=== PATIENT | female | born 1960 | race Caucasian/White ===

== ENCOUNTER 2017-03-23 12:40 | Outpatient (CLI) | payer OTHER | END 2017-03-23 12:41 | disposition home or self-care (01) | LOC: BICMAMMO 12:40 | PROVIDERS: ATTEND Family Medicine | DX: Z13.820 Encounter for screening for osteoporosis (principal) | CPT/HCPCS: 77080 ==

== ENCOUNTER 2017-04-10 08:05 | Outpatient (CLI) | payer OTHER | END 2017-04-10 08:06 | disposition home or self-care (01) | LOC: BICMAMMO 08:05 | PROVIDERS: ATTEND Family Medicine | DX: Z12.31 Encounter for screening mammogram for malignant neoplasm of breast (principal); R92.1 Mammographic calcification found on diagnostic imaging of breast; Z80.3 Family history of malignant neoplasm of breast | CPT/HCPCS: 77067 ==

== ENCOUNTER 2018-02-02 09:52 | Outpatient (CLI) | payer OTHER ==
--- NOTE | 2018-02-02 12:09 | RAD ---
THREE VIEWS PARANASAL SINUSES: Date: 02-02-18 History: COPD with acute respiratory infection. FINDINGS: Visualized paranasal sinuses appear clear. No definite mucosal thickening is seen and there is no celestina dence of an air fluid level. Osseous structures have a grossly normal appearance. IMPRESSION: No mucosal thickening or air fluid level is seen in the visualized paranasal sinuses. POS: [facility]
--- NOTE | 2018-02-02 12:19 | RAD ---
PA AND LATERAL CHEST: HISTORY: COPD. Acute respiratory infection. FINDINGS: The heart size is normal. The aorta is tortuous. The lungs are well expanded without focal areas of consolidation, pneumothoraces, or pleural effusion. No acute osseous abnormalities are seen. IMPRESSION: No radiographic evidence of acute cardiopulmonary process. POS: [facility]
== END 2018-02-02 09:53 | disposition home or self-care (01) ==
LOC: BICRAD 09:52
PROVIDERS: ATTEND Family Medicine
DX: J44.0 Chronic obstructive pulmonary disease with (acute) lower respiratory infection (principal)
CPT/HCPCS: 70220; 71046

== ENCOUNTER 2018-09-01 15:14 | Outpatient (CLI) | payer OTHER ==
--- NOTE | 2018-09-01 17:07 | RAD ---
RADIOGRAPH CHEST 2 VIEWS: 09/01/18 HISTORY: 57-year-old female with dyspnea. FINDINGS: There is hyperinflation of the lungs, consistent with COPD. There is no evidence of air space densit y, pneumothorax, or pulmonary edema. There is no cardiomegaly or pleural effusion. IMPRESSION: 1) No acute cardiopulmonary findings. 2) Mild emphysema. jn [] POS: [facility]
== END 2018-09-01 15:15 | disposition home or self-care (01) ==
LOC: RAD 15:14
PROVIDERS: ATTEND Internal Medicine Pulmonary Disease
DX: R06.00 Dyspnea, unspecified (principal); J43.9 Emphysema, unspecified
CPT/HCPCS: 71046

== ENCOUNTER 2018-12-15 12:31 | Emergency (ER) | payer OTHER ==
[2018-12-15] MEDS ORDERED: Ondansetron PF 4 MG/2 ML Vial ONE (12:55)
[2018-12-15] MEDS ORDERED: Morphine 4 MG/ML VIAL ONE (13:07)
[2018-12-15 13:26] LABS: Hemoglobin 14.9 g/dL (12.0-16.0); Mean Corpuscular HGB CONC 33.8 g/dL (32.0-36.0); Mean Corpuscular Hemoglobin 30.9 pg (27.0-31.0); Mean Corpuscular Volume 91.5 fL (78.0-98.0); Mean Platelet Volume 7.3 fL (7.4-10.4); Platelet Count 344 thou/uL (130-400); Red Blood Cell (RBC) Count 4.83 mill/uL (4.20-5.40); White Blood Cell (WBC) Count 10.4 thou/uL (4.8-10.8)
[2018-12-15 13:45] LABS: ALT (SGPT) 24 U/L (8-55); AST (SGOT) 25 U/L (5-34); Albumin 4.5 g/dL (3.5-5.0); Alkaline Phosphatase 121 U/L (40-110); Anion Gap 16 mmol/L (10-20); BUN (Urea Nitrogen) 14 mg/dL (9.8-20.1); Bilirubin, Total 0.4 mg/dL (0.2-1.2); CK (CPK) 172 U/L (29-168); Calc. Creatinine Clearance 0 mL/min (70-130); Calcium 9.7 mg/dL (7.8-10.44); Carbon Dioxide 21 mmol/L (22-29); Chloride 101 mmol/L (98-107); Estimated GFR-MDRD 57; Globulin 3.8 g/dL (2.4-3.5); Glucose 92 mg/dL (70-105); Lipase 19 U/L (8-78); Potassium 4.1 mmol/L (3.5-5.1); Protein, Total 8.3 g/dL (6.0-8.3); Sodium 134 mmol/L (136-145)
[2018-12-15 13:57] LABS: Band 2 % (5-11); Eosinophils 2 % (0-10); Lymphocytes 63 % (21-51); MDiff Complete? YES; Monocytes 6 % (0-10); Neutrophil 27 % (42-75); Platelet Morphology Comment Appears Adequate
--- NOTE | 2018-12-18 14:43 | EKG ---
Test Reason : Blood Pressure : / mmHG Vent. Rate : 086 BPM Atrial Rate : 086 BPM P-R Int : 152 ms QRS Dur : 092 ms QT Int : 374 ms P-R-T Axes : 070 060 068 degrees QTc Int : 447 ms Normal sinus rhythm Normal ECG Confirmed by JULIA ARREGUIN DO ([id number]), copy editor WINNIE ANTONIO ([id number]) on 12/18/2018 2:42:16 PM Referred By: Confirmed By:JULIA ARREGUIN DO
== END 2018-12-15 15:07 | disposition home or self-care (01) ==
LOC: ERS 12:31
DX: R19.7 Diarrhea, unspecified (principal); R11.2 Nausea with vomiting, unspecified; E11.9 Type 2 diabetes mellitus without complications; F41.9 Anxiety disorder, unspecified; F31.9 Bipolar disorder, unspecified; F43.10 Post-traumatic stress disorder, unspecified; Z79.899 Other long term (current) drug therapy; F17.210 Nicotine dependence, cigarettes, uncomplicated
CPT/HCPCS: 80053; 82550; 83690; 84484; 85025; 93005; 96361; 96374; 96375; J2270; J2405

== ENCOUNTER 2019-07-08 07:57 | Outpatient (CLI) | payer OTHER ==
--- NOTE | 2019-07-08 09:14 | ULT ---
Hepatic sonogram with duplex evaluation HISTORY: Hepatitis. Abdominal pain. Shadowing stone is present within the dependent portion of the gallbladder lumen. No gallbladder wall thickening or pericholecystic fluid. Common duct is 0.4 cm. Liver is diffusely echogenic without focal mass or intrahepatic biliary dilatation. Spleen is 10.0 cm length. Normal appearance. No free fluid. Good color and spectral Doppler flow within the hepatic and splenic arteries. Portal venous flow is t owards the liver. Hepatic venous flow is towards the IVC. IMPRESSION : Cholelithiasis. No evidence of acute biliary obstruction. Hepato-steatosis. No sonographic findings of portal venous hypertension.
== END 2019-07-08 07:58 | disposition home or self-care (01) ==
LOC: BICULT 07:57
PROVIDERS: ATTEND Physician Assistant Medical
DX: B18.2 Chronic viral hepatitis C (principal); K80.20 Calculus of gallbladder without cholecystitis without obstruction; K76.0 Fatty (change of) liver, not elsewhere classified
CPT/HCPCS: 76705

== ENCOUNTER 2019-09-12 10:25 | Inpatient (IN) | payer OTHER ==
[2019-09-12 11:34] LABS: #Lymphocytes 2.3 thou/uL (1.20-3.40); #Neutrophils 9.6 thou/uL (1.40-6.50); %Basophils 0.3 % (0.0-1.0); %Eosinophils 0.1 % (0.0-10.0); %Lymphocytes 17.9 % (21.0-51.0); %Monocytes 7.7 % (0.0-10.0); Hemoglobin 14.1 g/dL (12.0-16.0); Mean Corpuscular HGB CONC 32.5 g/dL (32.0-36.0); Mean Corpuscular Hemoglobin 29.6 pg (27.0-31.0); Mean Corpuscular Volume 91.1 fL (78.0-98.0); Mean Platelet Volume 7.7 fL (7.4-10.4); Platelet Count 299 thou/uL (130-400); RBC Distribution Width 12.1 % (11.5-14.5); Red Blood Cell (RBC) Count 4.77 mill/uL (4.20-5.40)
[2019-09-12] MEDS ORDERED: Nitroglycerin 2% Ointment 1 INCH/1 GM Packet ONE (11:40)
[2019-09-12 12:06] LABS: ALT (SGPT) 46 U/L (8-55); AST (SGOT) 91 U/L (5-34); Albumin 4.1 g/dL (3.5-5.0); Alkaline Phosphatase 106 U/L (40-110); Anion Gap 15 mmol/L (10-20); BUN (Urea Nitrogen) 19 mg/dL (9.8-20.1); Bilirubin, Total 0.6 mg/dL (0.2-1.2); CK (CPK) 2746 U/L (29-168); Calc. Creatinine Clearance 0 mL/min (70-130); Calcium 8.5 mg/dL (7.8-10.44); Carbon Dioxide 18 mmol/L (22-29); Chloride 111 mmol/L (98-107); Estimated GFR-MDRD 74; Globulin 3.4 g/dL (2.4-3.5); Glucose 140 mg/dL (70-105); Potassium 3.7 mmol/L (3.5-5.1); Protein, Total 7.5 g/dL (6.0-8.3); Sodium 140 mmol/L (136-145)
[2019-09-12 13:30] VITALS: BMI 23.9
[2019-09-12] MEDS: cloNIDine 0.1 MG TAB PO PRN ×2 (13:32→21:31)
[2019-09-12] MEDS: Sodium Bicarbonate 100 MEQ in Sodium Chloride 0.45% 1,000 ML IV SCH ×2 (13:35→21:01)
[2019-09-12 13:41] LABS: Lactic Acid 0.8 mmol/L (0.5-2.2)
[2019-09-12 14:06] LABS: Magnesium 1.7 mg/dL (1.6-2.6)
[2019-09-12] MEDS ORDERED: Labetalol HCl 100 MG/20 ML VIAL SLOW IVP PRN (14:14)
[2019-09-12] MEDS ORDERED: Ondansetron PF 4 MG/2 ML Vial IVP PRN (14:15)
[2019-09-12] MEDS ORDERED: Dextrose 50% Abboject 50 ML SYRINGE SLOW IVP PRN (14:37)
[2019-09-12] MEDS ORDERED: HumaLOG 300 UNITS/3 ML VIAL SC PRN (14:37)
[2019-09-12] MEDS ORDERED: Dextrose 5% in Water 1,000 ML IV PRN (14:37)
[2019-09-12] MEDS ORDERED: Nitroglycerin 2% Ointment 1 INCH/1 GM Packet TOP SCH (14:45)
[2019-09-12] MEDS ORDERED: Magnesium Sulfate 4 GM in Sodium Chloride 0.9% 250 ML 250 ML IVPB SCH (14:45)
--- NOTE | 2019-09-12 15:23 | HP ---
PRIMARY CARE PHYSICIAN: In [place]. HISTORY OF PRESENT ILLNESS: Ms. Waite is a 58-year-old female, who presented to the emergency room at [place] at 6:00 a.m. today. She reports that she has been nauseated and vomiting for the last 24 hours. She reports that she went on a fishing trip near [place], started vomiting, was out in the sun all day and not able to keep any fluids down. She reports that she has had worsening cramping overnight and came in to the emergency room in [place] with epigastric pain, nausea, vomiting, dehydration. She reports that she has had similar symptoms ongoing since May of this year, had a colonoscopy at some point within the last month, but says they were unable to find anything. She did have an ultrasound in our system of the right upper quadrant, which showed cholelithiasis with no evidence of acute biliary obstruction. There is pathology report from a sample taken by Dr. Cortes on the of this month. Vital signs; she is hypertensive, systolic in the 190s to 200s. Lab work; white blood cell count 16.2, hemoglobin 15.8, hematocrit 50.3, and platelet count 443. Carbon dioxide 16, gap is 23, BUN is 28, glucose 189. AST is 80, ALT 48, alkaline phosphatase 120. CK is 2054, CK-MB is 16. Troponin is 0.032. Albumin 5.1. UA; small amount of bilirubin, small amount of blood, ketones, no bacteria is noted. Toxicology positive for cannabinoids. Plasma alcohol less than 10. She was sent over to [facility] Emergency Room for further management and admission. Here, she was still nauseated with profound hypertension and tachycardia. Prior to her arrival, she had received Phenergan and Valium and Zofran were given prior to arrival. EKG showed ST-segment depression in V4 and V5 only. The patient will be admitted to the telemetry unit for further management. REVIEW OF SYSTEMS: The patient reports she has had some body aches, body muscle cramping, nausea, vomiting, epigastric abdominal pain, p.o. intolerance. She denied any fevers, chills, or any upper respiratory symptoms. All systems reviewed and negative unless mentioned in the HPI or above. PAST MEDICAL HISTORY: Pertinent for type 2 diabetes, GERD, hypertension, chronic obstructive pulmonary disease, RLS. SURGICAL HISTORY: Rectal prolapse, bladder prolapse, multiple teeth extractions, left knee surgery. She said she had a small blood clot in her head when she was a child and has had her right ovary removed. PSYCH HISTORY: Bipolar depression, PTSD, anxiety. SOCIAL HISTORY: Denies any alcohol use. Denies drug use. Uses tobacco. Smoke cigarettes. ALLERGIES: NO KNOWN DRUG ALLERGIES. CURRENT MEDICATIONS: Per the ER systems, which still has to be reconciled. 1. Lisinopril/hydrochlorothiazide. 2. Prilosec 40 mg once a day. 3. Dulera two inhalations daily. 4. Flagyl 500 mg p.o. q.6 hours. 5. Clonidine 0.2 mg p.r.n. as needed. PHYSICAL EXAMINATION: VITAL SIGNS: Blood pressure 189/105, pulse is 110, respiratory rate is 20, pO2 sats are 96% on room air. CONSTITUTIONAL: The patient appears nauseated and in mild pain distress. She does not look like she feels well. She is alert though and oriented to person, place and time. HEENT: Head is atraumatic and normocephalic. Eyes, pupils are equally round and reactive to light. There is no photophobia. Conjunctiva is normal. ENT, mouth exam is normal. Mucous membranes are moist. NECK: Normal range of motion. No JVD is noted. RESPIRATORY: Breath sounds are clear. Breath sounds equal bilaterally. Chest expansion is equal. CARDIOVASCULAR: Regular heart rate and rhythm. Heart sounds are normal. ABDOMEN: Mild tenderness, epigastric on palpation. Bowel sounds are heard. BACK: Normal range of motion. No tenderness. EXTREMITIES: Upper extremity; normal range of motion. Motor strength is normal. Radial pulses are normal. Lower extremity; normal inspection. Pedal pulses are normal. NEURO: The patient is oriented to person, place, and time. SKIN: Warm, dry, normal in color. PSYCH: Normal affect. ASSESSMENT AND PLAN: 1. Rhabdomyolysis, dehydration, start fluids. With hypertension, we will start half-normal saline, sodium bicarb we will recheck CK in the morning. 2. Nausea, vomiting. Add some Zofran IV for any nausea. Keep her n.p.o. today. Start clear liquids in the morning and see if she tolerates. Dr. Cortes evidently did colonoscopy within the last month. If symptoms persist, we may ask him to consult. 3. Hypertensive urgency with elevated troponin in the indeterminate range. We will do serial troponins. Start clonidine. The patient has some nitroglycerin paste on her chest. 4. Diabetes type 2. Accu-Cheks before meals and at bedtime. Sliding scale as needed for coverage. 5. Metabolic acidosis see #1. 6. Deep venous thrombosis and gastrointestinal prophylaxis started. 7. Recheck lab work in the morning. We have added phosphorus and magnesium and TSH level. 8. Case discussed with Dr. Whitney, who agrees with plan. Job ID: [id number]
[2019-09-12] MEDS ORDERED: Hyoscyamine Sulfate SL 0.125 mg Tablet SL PRN (18:10)
[2019-09-12] MEDS: Ipratropium/Albuterol Sulfate 4 GM AER IH SCH (19:08)
[2019-09-12] MEDS: Mometasone 200 MCG/Formoterol 5 MCG 120 PUFF INHALER INH SCH (19:09)
[2019-09-12] MEDS: Lisinopril/Hydrochlorothiazide 20 mg/12.5 mg Tablet PO SCH (20:38)
[2019-09-12] MEDS: Nitroglycerin 2% Ointment 1 INCH/1 GM Packet TOP SCH (20:38)
[2019-09-12] MEDS ORDERED: Calcium Carbonate 500 MG ChewTAB PO PRN (23:27)
[2019-09-12] MEDS ORDERED: Senokot S 8.6-50 MG TAB PO PRN (23:27)
[2019-09-12] MEDS ORDERED: ALPRAZolam 0.5 MG TAB PO SCH (23:45)
[2019-09-12] MEDS ORDERED: ALPRAZolam 0.25 MG TAB PO SCH (23:45)
[2019-09-12] MEDS: Acetaminophen 325 MG TAB PO PRN (23:48)
[2019-09-13 04:25] LABS: #Monocytes 0.6 thou/uL (0.11-0.59); #Neutrophils 6.9 thou/uL (1.40-6.50); %Basophils 0.4 % (0.0-1.0); %Eosinophils 0.2 % (0.0-10.0); %Lymphocytes 28.6 % (21.0-51.0); %Monocytes 5.9 % (0.0-10.0); %Neutrophils 64.9 % (42.0-75.0); Hemoglobin 13.8 g/dL (12.0-16.0); Mean Corpuscular HGB CONC 33.3 g/dL (32.0-36.0); Mean Corpuscular Hemoglobin 30.3 pg (27.0-31.0); Mean Corpuscular Volume 90.7 fL (78.0-98.0); Platelet Count 262 thou/uL (130-400); RBC Distribution Width 11.9 % (11.5-14.5); Red Blood Cell (RBC) Count 4.57 mill/uL (4.20-5.40); White Blood Cell (WBC) Count 10.6 thou/uL (4.8-10.8)
[2019-09-13 05:20] LABS: Albumin 3.7 g/dL (3.5-5.0); BUN (Urea Nitrogen) 10 mg/dL (9.8-20.1); BUN/Creatinine Ratio 15.63; Calc. Creatinine Clearance 91 mL/min (70-130); Calcium 8.7 mg/dL (7.8-10.44); Carbon Dioxide 18 mmol/L (22-29); Chloride 100 mmol/L (98-107); Estimated GFR-MDRD Greater than 90; Glucose 111 mg/dL (70-105); Phosphorus 2.5 mg/dL (2.3-4.7); Potassium 3.4 mmol/L (3.5-5.1); Sodium 132 mmol/L (136-145)
[2019-09-13] MEDS: cloNIDine 0.1 MG TAB PO PRN (05:20)
[2019-09-13] MEDS: Acetaminophen 325 MG TAB PO PRN ×3 (05:21→20:45)
[2019-09-13] MEDS: Nitroglycerin 2% Ointment 1 INCH/1 GM Packet TOP SCH (05:21)
[2019-09-13 05:33] LABS: CK (CPK) 4390 U/L (29-168)
[2019-09-13 05:42] LABS: Anion Gap 17 mmol/L (10-20)
[2019-09-13] MEDS: Mometasone 200 MCG/Formoterol 5 MCG 120 PUFF INHALER INH SCH ×2 (07:23→20:35)
[2019-09-13] MEDS: Ipratropium/Albuterol Sulfate 4 GM AER IH SCH ×2 (07:24→12:39)
[2019-09-13] MEDS: Sodium Bicarbonate 100 MEQ in Sodium Chloride 0.45% 1,000 ML IV SCH ×2 (08:02→18:12)
[2019-09-13] MEDS: Lisinopril/Hydrochlorothiazide 20 mg/12.5 mg Tablet PO SCH ×2 (09:10→20:47)
[2019-09-13] MEDS: Enoxaparin Sodium 40 MG/0.4 ML SYRINGE SC SCH (09:10)
[2019-09-13] MEDS: cloNIDine 0.2 MG TAB PO SCH ×3 (09:10→20:45)
--- NOTE | 2019-09-13 10:25 | PDOC.HOSPP ---
- Subjective Encounter Date: 09/13/19 Encounter Time: 12:00 Subjective: Patient seen and examined for rhabdomyolysis. Nausea improving. No new complaints. No overnight events - Objective Vital Signs & Weight: Vital Signs (12 hours) Temp Pulse Resp BP BP Pulse Ox 09/13/19 07:56 97.9 F 65 16 176/95 H 95 09/13/19 07:23 96 09/13/19 07:19 59 L 16 96 09/13/19 05:20 183/97 H 09/13/19 04:00 98.1 F 85 18 183/96 H 95 09/13/19 01:01 75 187/97 H 09/13/19 00:57 187/97 H 09/13/19 00:00 98.8 F 83 18 183/101 H 95 09/12/19 23:20 189/107 H Weight Weight 130 lb 11.2 oz I&O: 09/12/19 09/13/19 09/14/19 06:59 06:59 06:59 Intake Total 2910 Output Total 2150 Balance 760 Result Diagrams: 09/14/19 04:17 09/14/19 04:17 Additional Labs: Accuchecks 09/13/19 09/12/19 09/12/19 05:24 20:38 17:59 POC Glucose 122 H 124 H 134 H Laboratory Tests 09/13/19 04:06 Creatine Kinase 4390 H Laboratory Tests 09/12/19 07:35 U Cannabinoids Screen Detected H EKG Reviewed by me: Yes (Tele SR) Hospitalist ROS - Review of Systems Respiratory: denies: cough, dry, shortness of breath, hemoptysis, SOB with excertion, pleuritic pain, sputum, wheezing, other Cardiovascular: denies: chest pain, palpitations, orthopnea, paroxysmal noc. dyspnea, edema, light headedness, other - Medication Medications: Active Medications Generic Name Dose Route Start Last Admin Trade Name Freq PRN Reason Stop Dose Admin Acetaminophen 650 mg 09/12/19 23:27 09/13/19 05:21 Tylenol PO 650 mg Q4H PRN Administration Headache/Fever/Mild Pain (1-3) Albuterol/Ipratropium 1 gm 09/12/19 19:00 09/13/19 07:24 Combivent Respimat 20-100 Mcg IH Not Given QID-RT RISHI Albuterol/Ipratropium 3 ml 09/13/19 06:30 09/13/19 07:19 Duoneb NEB 3 ml BID-RT RISHI Administration Clonidine 0.1 mg 09/12/19 11:36 09/13/19 05:20 Catapres PO 0.1 mg Q4H PRN Administration SBP Greater Than 170 Clonidine 0.2 mg 09/13/19 09:00 09/13/19 09:10 Catapres PO 0.2 mg TID RISHI Administration Enoxaparin Sodium 40 mg 09/13/19 09:00 09/13/19 09:10 Lovenox SC 40 mg 0900 RISHI Administration Lisinopril/HCTZ 1 tab 09/12/19 21:00 09/13/19 09:10 Prinizide 20-12.5 PO 1 tab BID RISHI Administration Sodium Bicarbonate 100 meq/ 1,100 mls @ 125 mls/hr 09/12/19 11:45 09/13/19 08 :02 Sodium Chloride IV 1,100 mls .[id number] RISHI Administration Labetalol HCl 10 mg 09/12/19 14:14 09/13/19 01:01 Normodyne SLOW IVP 10 mg Q4H PRN Administration Systolic BP > 160 Mometasone Furoate/Formoterol Fumar 2 puff 09/12/19 21:00 09/13/19 07:23 Dulera 200 Mcg/5 Mcg Inhaler INH 2 puff BID RISHI Administration Nitroglycerin 0.5 inch 09/12/19 22:00 09/13/19 05:21 Nitro-Bid 2% Ointment TOP 0.5 inch Q8HR RISHI Administration Ondansetron HCl 4 mg 09/12/19 14:15 09/12/19 20:41 Zofran IVP 4 mg Q6H PRN Administration Nausea/Vomiting Pantoprazole Sodium 40 mg 09/13/19 09:00 09/13/19 09:10 Protonix PO 40 mg QAM RISHI Administration Sodium Chloride 10 ml 09/12/19 21:00 09/13/19 09:13 Flush - Normal Saline IVF Not Given Q12HR RISHI - Exam General Appearance: NAD Neck: supple, no JVD Heart: RRR, no gallops Respiratory: no wheezes, no ronchi Gastrointestinal: non-tender, non-distended, normal bowel sounds Extremities: no cyanosis Neurological: no new deficit Hosp A/P - Plan DVT proph w/SCDs N/V Rhabdomyolysis Cannabis abuse Hypokalemia/Hyponatremia Metabolic acidosis DM2 RLS COPD HTN GERD PLAN: Restart Clonidine DC NTG patch due to headache Cont IVF with bicarb Replace Potassium Cont other meds as above
[2019-09-13] MEDS ORDERED: ALPRAZolam 0.25 MG TAB PO PRN (10:26)
[2019-09-13] MEDS: Potassium Chloride 20 MEQ TAB PO SCH ×2 (12:42→15:45)
[2019-09-13] MEDS ORDERED: Ibuprofen 200 MG TAB PO PRN (14:04)
[2019-09-14] MEDS: Sodium Bicarbonate 100 MEQ in Sodium Chloride 0.45% 1,000 ML IV SCH ×2 (02:26→11:42)
[2019-09-14 05:32] LABS: Albumin 3.4 g/dL (3.5-5.0); Anion Gap 11 mmol/L (10-20); BUN (Urea Nitrogen) 14 mg/dL (9.8-20.1); BUN/Creatinine Ratio 17.95; Calc. Creatinine Clearance 73 mL/min (70-130); Calcium 8.9 mg/dL (7.8-10.44); Carbon Dioxide 28 mmol/L (22-29); Chloride 102 mmol/L (98-107); Estimated GFR-MDRD 76; Glucose 116 mg/dL (70-105); Phosphorus 1.9 mg/dL (2.3-4.7); Potassium 3.3 mmol/L (3.5-5.1); Sodium 138 mmol/L (136-145)
[2019-09-14 05:33] LABS: Hemoglobin 13.3 g/dL (12.0-16.0); Lymphocytes 47 % (21-51); MDiff Complete? YES; Mean Corpuscular HGB CONC 33.7 g/dL (32.0-36.0); Mean Corpuscular Hemoglobin 30.6 pg (27.0-31.0); Mean Corpuscular Volume 90.6 fL (78.0-98.0); Mean Platelet Volume 7.9 fL (7.4-10.4); Monocytes 4 % (0-10); Neutrophil 49 % (42-75); Platelet Count 227 thou/uL (130-400); Platelet Morphology Comment Appears Adequate; RBC Distribution Width 11.6 % (11.5-14.5); RBC Morphology Normal; Red Blood Cell (RBC) Count 4.35 mill/uL (4.20-5.40); White Blood Cell (WBC) Count 5.1 thou/uL (4.8-10.8)
[2019-09-14] MEDS ORDERED: PHOS-NAK 1 PKT PACK PO SCH ×2 (06:15→17:00)
[2019-09-14] MEDS: Mometasone 200 MCG/Formoterol 5 MCG 120 PUFF INHALER INH SCH ×2 (07:24→18:47)
[2019-09-14] MEDS ORDERED: K-Phos Neutral 250 MG TAB PO SCH (08:15)
[2019-09-14] MEDS: Enoxaparin Sodium 40 MG/0.4 ML SYRINGE SC SCH (08:18)
[2019-09-14] MEDS: Lisinopril/Hydrochlorothiazide 20 mg/12.5 mg Tablet PO SCH (08:19)
[2019-09-14] MEDS: cloNIDine 0.2 MG TAB PO SCH ×4 (08:20→20:47)
[2019-09-14] MEDS: Potassium Chloride 20 MEQ TAB PO SCH (08:34)
--- NOTE | 2019-09-14 12:55 | PDOC.EVN ---
Event Note - Event Note Event Note: Patient seen and examined for nausea with vomiting. Vitals reviewed. I agree with note provided by CIRCLE SAW OPERATOR. N/V Rhabdomyolysis Cannabis abuse Hypokalemia/Hyponatremia Metabolic acidosis DM2 RLS COPD HTN GERD
[2019-09-14] MEDS: K-Phos Neutral 250 MG TAB PO SCH ×2 (13:23→17:34)
[2019-09-14] MEDS ORDERED: NIFEdipine XL 60 MG TAB PO SCH (14:45)
[2019-09-14] MEDS: Acetaminophen 325 MG TAB PO PRN ×2 (15:33→20:47)
[2019-09-14] MEDS: Lactated Ringer's 1,000 ML IV SCH ×3 (16:41→20:47)
[2019-09-14] MEDS ORDERED: Potassium Chloride 20 MEQ TAB PO SCH (17:00)
--- NOTE | 2019-09-14 18:03 | CON ---
DATE OF CONSULTATION: 09/14/2019 SERVICE: Nephrology. REASON FOR CONSULTATION: Rhabdomyolysis with increasing CPK level. REQUESTING PHYSICIAN: Carlton Whitney MD HISTORY OF PRESENT ILLNESS: A 58-year-old female with known history of type 2 diabetes, hypertension, and COPD, who was admitted on September 11 due to intractable nausea and vomiting, dehydration, and rhabdomyolysis. The patient was started on IV fluid therapy and liberal oral intake. Generalized body cramps noticed on presentation have subsided and the patient is ambulating. Nausea and vomiting have also subsided. The patient is keeping food down. She, however, has increasing CPK. CPK has gone up from 2000 on presentation to 4800 currently, necessitating Nephrology consult. There is no history of fever, abdominal pain, leg swelling, dysuria, hematuria, headache, dizziness, shortness of breath, focal weakness, hematemesis, hematochezia. PAST MEDICAL HISTORY: 1. Type 2 diabetes mellitus. 2. Gastroesophageal reflux disease. 3. Hypertension. 4. COPD. 5. RLS. 6. Cholelithiasis. PAST SURGICAL HISTORY: 1. Rectal prolapse repair. 2. Bladder prolapse repair. 3. Left knee surgery. 4. Colonoscopy. 5. Upper GI series. FAMILY HISTORY: Reviewed, but noncontributory. No history of premature cardiac disease in relatives. SOCIAL HISTORY: The patient is everyday smoker, smokes about 2 packs of cigarettes daily. Last cigarette use was about four days ago. She denied alcohol use or recreational drug use. ALLERGIES: NO KNOWN DRUG ALLERGIES REPORTED. PRIOR TO HOSPITAL MEDICATIONS: 1. Lisinopril/hydrochlorothiazide 20/12.5 one tablet b.i.d. 2. Hyoscyamine sulfate 0.125 mg sublingual q.4h p.r.n. 3. Metronidazole 500 mg q.8 hours. 4. Clonidine 0.2 mg p.o. b.i.d. 5. DuoNeb nebulization b.i.d. 6. Combivent 1 puff inhalation q.i.d. p.r.n. 7. Lisinopril 20 mg p.o. b.i.d. 8. Dulera 2 puffs inhalation b.i.d. 9. Omeprazole 40 mg p.o. daily. 10. Zofran ODT 4 mg p.o. b.i.d. p.r.n. for nausea and vomiting. CURRENT HOSPITAL MEDICATIONS: 1. Half NS plus sodium bicarbonate running at 125 mL/h. 2. Clonidine 0.2 mg p.o. t.i.d. 3. Lovenox 40 mg subcutaneously daily. 4. DuoNeb nebulization b.i.d. 5. Potassium phosphate Neutral 500 mg p.o. t.i.d. with meals. 6. Lisinopril/hydrochlorothiazide 20/12.5 mg p.o. b.i.d. 7. Dulera 2 puffs inhalation b.i.d. 8. Protonix 40 mg p.o. daily. 9. Phos-Nak two packets p.o. b.i.d. 10. Potassium chloride 20 mEq p.o. b.i.d. 11. Acetaminophen 650 mg q.4h p.r.n. 12. Xanax 0.25 mg q.i.d. p.r.n. REVIEW OF SYSTEMS: 12-point review of system performed was negative other than pertinent positives and negatives included in the History of Present Illness. PHYSICAL EXAMINATION: VITAL SIGNS: Temperature 97.6, pulse 78, respiratory rate 16, SpO2 of 93% on room air, blood pressure is 135/73. I and O in the last 24 hours showed total intake of 3020 with total output of 3900. GENERAL: Middle-age female, in no obvious distress. Afebrile. Anicteric. Acyanotic. HEENT: Normocephalic, atraumatic. Oral mucosa is moist. NECK: Supple with no JVD. CARDIOVASCULAR: Regular rhythm and rate with normal heart sounds one and two. RESPIRATORY: Fair air entry bilaterally with few transmitted breath sounds with no obvious crackle or rhonchi or use of accessory muscles. GI: Full, soft, nontender, nondistended with normal bowel sounds. MUSCULOSKELETAL: Extremities are grossly normal looking atraumatic with no edema. SKIN: Skin turgor is reduced. No obvious edema appreciated. No erythema appreciated. BREAKDOWN MAN: Conscious, alert, and oriented x3 with appropriate mental status. Cranial nerves 2 through 12 are grossly intact. DIAGNOSTIC DATA: CBC today showed WBC count of 5.1, hemoglobin of 13.3, platelets of 227. Chemistry showed sodium 138, potassium 3.3, chloride 102, CO2 of 28, BUN 14, creatinine 0.78, glucose 116, calcium 8.9, phosphorus 1.9, albumin 3.4. CPK today is 4494. It was 4 on presentation. ASSESSMENT: 1. Rhabdomyolysis: Due to severe dehydration. 2. Hypertension: Control is suboptimal. Blood pressures have been mostly elevated at 180s prior to recommencement of clonidine pointing to rebound related to clonidine. 3. Hypokalemia. 4. Hypophosphatemia. 5. Dehydration: Due to inadequate fluid intake with continuous use of diuretic. PLAN: 1. We will escalate IV fluid therapy. We will discontinue half NS plus sodium bicarbonate and start lactated Ringer's at 250 mL/h. 2. We will replete serum potassium as well as a phosphorous. 3. We will get serum magnesium in the morning. 4. We will recheck renal function as well as CPK in the morning. 5. We will also discontinue lisinopril and hydrochlorothiazide for now. We will start nifedipine 60 mg to help control BP. Further treatment to follow depending on hospital course. Job ID: [id number]
--- NOTE | 2019-09-14 22:11 | PDOC.HOSPP ---
- Subjective Encounter Date: 09/14/19 Encounter Time: 16:00 Subjective: Patient seen and examined for gen weakness/Rhabdomyolysis. Feeling better. Nausea better. No new complaints. No overnight events - Objective Vital Signs & Weight: Vital Signs (12 hours) Temp Pulse Resp BP BP Pulse Ox 09/14/19 20:47 183/97 H 09/14/19 19:20 97.7 F 77 16 113/55 L 09/14/19 18:36 75 18 94 L 09/14/19 15:31 65 09/14/19 15:29 98.5 F 65 14 157/77 H 97 09/14/19 11:47 98.4 F 66 16 201/84 H 95 Weight Admit Weight 130 lb 12.8 oz Weight 128 lb 1.6 oz I&O: 09/13/19 09/14/19 09/15/19 06:59 06:59 06:59 Intake Total 2910 3020 Output Total 2150 3900 Balance 760 -880 Result Diagrams: 09/14/19 04:17 09/14/19 04:17 Additional Labs: Accuchecks 09/14/19 09/14/19 10:16 05:58 POC Glucose 113 H 117 H EKG Reviewed by me: Yes (Tele SR) Hospitalist ROS - Review of Systems Respiratory: denies: cough, dry, shortness of breath, hemoptysis, SOB with excertion, pleuritic pain, sputum, wheezing, other Cardiovascular: denies: chest pain, palpitations, orthopnea, paroxysmal noc. dyspnea, edema, light headedness, other Gastrointestinal: denies: nausea, vomiting, abdominal pain, diarrhea, constipation, melena, hematochezia, other - Medication Medications: Active Medications Generic Name Dose Route Start Last Admin Trade Name Freq PRN Reason Stop Dose Admin Acetaminophen 650 mg 09/12/19 23:27 09/14/19 20:47 Tylenol PO 650 mg Q4H PRN Administration Headache/Fever/Mild Pain (1-3) Albuterol/Ipratropium 3 ml 09/13/19 06:30 09/14/19 18:36 Duoneb NEB 3 ml BID-RT RISHI Administration Alprazolam 0.25 mg 09/13/19 10:26 09/14/19 20:47 Xanax PO 0.25 mg QIDPRN PRN Administration Anxiety Clonidine 0.1 mg 09/12/19 11:36 09/13/19 05:20 Catapres PO 0.1 mg Q4H PRN Administration SBP Greater Than 170 Clonidine 0.2 mg 09/13/19 09:00 09/14/19 20:47 Catapres PO 0.2 mg TID RISHI Administration Lactated Ringer's 1,000 mls @ 250 mls/hr 09/14/19 12:00 09/14/19 20:47 Lactated Ringer's IV 1,000 mls .Q4H RISHI Administration Labetalol HCl 10 mg 09/12/19 14:14 09/13/19 01:01 Normodyne SLOW IVP 10 mg Q4H PRN Administration Systolic BP > 160 Miscellaneous Medication 2 pkt 09/14/19 17:00 09/14/19 18:38 Phos-Nak PO 2 pkt BID-WM RSIHI Administration Mometasone Furoate/Formoterol Fumar 2 puff 09/12/19 21:00 09/14/19 18:47 Dulera 200 Mcg/5 Mcg Inhaler INH 2 puff BID RISHI Administration Ondansetron HCl 4 mg 09/12/19 14:15 09/12/19 20:41 Zofran IVP 4 mg Q6H PRN Administration Nausea/Vomiting Pantoprazole Sodium 40 mg 09/13/19 09:00 09/14/19 08:18 Protonix PO 40 mg QAM RISHI Administration Potassium Chloride 20 meq 09/14/19 17:00 09/14/19 18:38 K-Dur PO 20 meq BID-WM RISHI Administration Senna/Docusate Sodium 2 tab 09/12/19 23:27 09/14/19 08:19 Senokot S PO 2 tab BID PRN Administration Constipation Sodium Chloride 10 ml 09/12/19 21:00 09/14/19 20:53 Flush - Normal Saline IVF Not Given Q12HR RISHI - Exam General Appearance: NAD Neck: supple, no JVD Heart: no gallops, no rubs Respiratory: no wheezes, no ronchi Gastrointestinal: soft, non-tender, normal bowel sounds Extremities: no cyanosis Hosp A/P - Plan DVT proph w/SCDs N/V Rhabdomyolysis Cannabis abuse Hypokalemia/Hyponatremia/hypophosphatemia Metabolic acidosis DM2 RLS COPD HTN GERD PLAN: Cont Clonidine Procardia XL added Increase IVF rate Replace Potassium/Phosphorus AM labs Cont other meds as above
[2019-09-15] MEDS: Lactated Ringer's 1,000 ML IV SCH ×2 (00:25→04:08)
[2019-09-15 04:07] VITALS: BP 104/58; TEMP 97.8
[2019-09-15 04:57] LABS: #Eosinphils 0.1 thou/uL (0.0-0.7); #Lymphocytes 2.4 thou/uL (1.20-3.40); #Monocytes 0.4 thou/uL (0.11-0.59); #Neutrophils 2.1 thou/uL (1.40-6.50); %Eosinophils 1.8 % (0.0-10.0); %Lymphocytes 47.1 % (21.0-51.0); %Monocytes 8.2 % (0.0-10.0); Hemoglobin 13.3 g/dL (12.0-16.0); Mean Corpuscular HGB CONC 34.2 g/dL (32.0-36.0); Mean Corpuscular Hemoglobin 31.3 pg (27.0-31.0); Mean Corpuscular Volume 91.5 fL (78.0-98.0); Platelet Count 216 thou/uL (130-400); RBC Distribution Width 11.8 % (11.5-14.5); Red Blood Cell (RBC) Count 4.25 mill/uL (4.20-5.40)
[2019-09-15 05:23] LABS: Albumin 3.5 g/dL (3.5-5.0); Anion Gap 12 mmol/L (10-20); BUN (Urea Nitrogen) 10 mg/dL (9.8-20.1); BUN/Creatinine Ratio 14.93; CK (CPK) 3961 U/L (29-168); Calc. Creatinine Clearance 86 mL/min (70-130); Calcium 9.1 mg/dL (7.8-10.44); Carbon Dioxide 28 mmol/L (22-29); Chloride 104 mmol/L (98-107); Estimated GFR-MDRD Greater than 90; Glucose 114 mg/dL (70-105); Magnesium 1.6 mg/dL (1.6-2.6); Phosphorus 3.5 mg/dL (2.3-4.7); Potassium 3.7 mmol/L (3.5-5.1); Sodium 140 mmol/L (136-145)
[2019-09-15] MEDS: Mometasone 200 MCG/Formoterol 5 MCG 120 PUFF INHALER INH SCH (06:51)
[2019-09-15] MEDS ORDERED: NIFEdipine XL 30 MG TAB PO SCH (09:00)
--- NOTE | 2019-09-15 17:58 | DIS ---
DATE OF ADMISSION: 09/12/2019 DATE OF DISCHARGE: 09/15/2019 DISCHARGE DISPOSITION: Home. The patient signed against medical advice. The patient was not seen on the day of discharge since the patient left prior to my shift. BRIEF HOSPITAL COURSE: The patient is a 58-year-old female with diabetes mellitus type 2 and hypertension, presented to the hospital with generalized weakness along with nausea and vomiting. Her workup was consistent with acute rhabdomyolysis along with multiple electrolyte abnormalities. Her CK on admission was 2746 that got worse to 5900. The patient was also evaluated by Nephrology. Her electrolytes were replaced. Nausea, vomiting, gradually improved. The patient was tolerating oral diet over the last 48 hours. FINAL DIAGNOSES: 1. Generalized weakness with nausea, vomiting, and rhabdomyolysis. 2. Cannabis abuse. The patient was counseled. 3. Hypokalemia. 4. Hyponatremia. 5. Hypophosphatemia. 6. Metabolic acidosis. 7. Diabetes mellitus type 2. 8. Restless legs syndrome. 9. Chronic obstructive pulmonary disease. 10. Hypertension. 11. Gastroesophageal reflux disease. Job ID: [id number]
== END 2019-09-15 07:16 | disposition left against medical advice (07) | DRG 558 ==
LOC: ERS 10:25 → 2NO 13:25
PROVIDERS: ADMIT Internal Medicine; ATTEND Internal Medicine
DX: M62.82 Rhabdomyolysis (principal); E87.1 Hypo-osmolality and hyponatremia; E87.2 Acidosis; F12.10 Cannabis abuse, uncomplicated; E87.6 Hypokalemia; E83.39 Other disorders of phosphorus metabolism; E11.9 Type 2 diabetes mellitus without complications; G25.81 Restless legs syndrome; J44.9 Chronic obstructive pulmonary disease, unspecified; I10 Essential (primary) hypertension; K21.9 Gastro-esophageal reflux disease without esophagitis; F43.10 Post-traumatic stress disorder, unspecified; F41.9 Anxiety disorder, unspecified; F17.210 Nicotine dependence, cigarettes, uncomplicated; E86.0 Dehydration; I16.0 Hypertensive urgency; Z79.899 Other long term (current) drug therapy
CPT/HCPCS: 36415; 36416; 80069; 82550; 82553; 83605; 83735; 84100; 84443; 85025; 93005; 94640; 94664; J1650; J2405; J3475; J7050; J7620

== ENCOUNTER 2019-12-08 12:34 | Outpatient (CLI) | payer OTHER ==
--- NOTE | 2019-12-08 12:55 | RAD ---
2 view chest: [12/08/2019] Comparison:01/04/2019 HISTORY: COPD, dyspnea FINDINGS: Increased linear interstitial densities are noted. The lungs are hyperinflated. No pneumoth orax or pleural fluid is seen and there is no focal consolidation or alveolar edema. The osseous structures appear stable. IMPRESSION: Stable interstitial prominence and pulmonary hyperinflation consistent with the provided history of COPD. No lobar consolidation or alveolar edema.
== END 2019-12-08 12:35 | disposition home or self-care (01) ==
LOC: BICRAD 12:34
PROVIDERS: ATTEND Internal Medicine Pulmonary Disease
DX: R06.00 Dyspnea, unspecified (principal); J98.4 Other disorders of lung
CPT/HCPCS: 71046

== ENCOUNTER 2024-10-27 10:00 | Emergency (ER) | payer MEDICAID ==
[2024-10-27 10:34] LABS: #Basophils 0.03 10x3/uL (0.0-0.2); #Eosinophils 0.04 10x3/uL (0.0-0.7); #Monocytes 0.64 10x3/uL (0.11-0.59); #Neutrophils 4.35 10x3/uL (1.40-6.50); %Basophils 0.3 % (0.0-1.0); %Eosinophils 0.4 % (0.0-10.0); %Lymphocytes 47.4 % (21.0-51.0); %Monocytes 6.6 % (0.0-10.0); %Neutrophils 44.7 % (42.0-75.0); Hematocrit 43.5 % (36.0-47.0); Hemoglobin 14.4 g/dL (12.0-16.0); Mean Corpuscular Hemoglobin 30.6 pg (27.0-31.0); Mean Corpuscular Volume 92.6 fL (78.0-98.0); Platelet Count 375 10x3/uL (130-400); Red Blood Cell (RBC) Count 4.70 mill/uL (4.20-5.40); White Blood Cell (WBC) Count 9.73 10x3/uL (4.8-10.8)
[2024-10-27 10:50] LABS: ALT (SGPT) 33 U/L (Less than 34); AST (SGOT) 27 U/L (11-34); Albumin 4.6 g/dL (3.1-4.5); Alkaline Phosphatase 84 U/L (40-110); Anion Gap 19 mmol/L (10-20); BUN (Urea Nitrogen) 9 mg/dL (9.8-20.1); Bilirubin, Total 0.5 mg/dL (0.3-1.2); Calc. Creatinine Clearance 0 mL/min (70-130); Calcium 10.7 mg/dL (7.8-10.44); Carbon Dioxide 18 mmol/L (23-31); Chloride 102 mmol/L (98-107); Globulin 4.2 g/dL (2.4-3.5); Glucose 108 mg/dL (80-115); Lipase 83 U/L (8-78); Potassium 4.6 mmol/L (3.5-5.1); Sodium 134 mmol/L (136-145)
== END 2024-10-27 12:11 | disposition left against medical advice (07) ==
LOC: ERS 10:00
DX: Z53.21 Procedure and treatment not carried out due to patient leaving prior to being seen by health care provider (principal)
CPT/HCPCS: 36415; 80053; 83690; 85025

== ENCOUNTER 2024-12-29 13:44 | Outpatient (CLI) | payer MEDICAID | END 2024-12-29 13:45 | disposition home or self-care (01) | LOC: BICMRI 13:44 | PROVIDERS: ATTEND Orthopaedic Surgery | DX: M51.16 Intervertebral disc disorders with radiculopathy, lumbar region (principal); M51.17 Intervertebral disc disorders with radiculopathy, lumbosacral region; M47.26 Other spondylosis with radiculopathy, lumbar region; M47.27 Other spondylosis with radiculopathy, lumbosacral region; M43.16 Spondylolisthesis, lumbar region; M48.062 Spinal stenosis, lumbar region with neurogenic claudication; G95.89 Other specified diseases of spinal cord; M41.9 Scoliosis, unspecified | CPT/HCPCS: 72148 ==

== ENCOUNTER 2025-01-06 18:18 | Inpatient (IN) | payer MEDICAID ==
[2025-01-06] MEDS ORDERED: Ondansetron PF 4 MG/2 ML Vial ONE (19:30)
[2025-01-06 19:39] LABS: #Basophils 0.03 10x3/uL (0.0-0.2); #Eosinophils Less than 0.03 10x3/uL (0.0-0.7); #Monocytes 0.80 10x3/uL (0.11-0.59); #Neutrophils 5.48 10x3/uL (1.40-6.50); %Basophils 0.3 % (0.0-1.0); %Eosinophils 0.2 % (0.0-10.0); %Lymphocytes 41.4 % (21.0-51.0); %Monocytes 7.3 % (0.0-10.0); %Neutrophils 49.9 % (42.0-75.0); Hematocrit 31.5 % (36.0-47.0); Hemoglobin 10.7 g/dL (12.0-16.0); Mean Corpuscular Hemoglobin 31.1 pg (27.0-31.0); Mean Corpuscular Volume 91.6 fL (78.0-98.0); Platelet Count 308 10x3/uL (130-400); Red Blood Cell (RBC) Count 3.44 mill/uL (4.20-5.40); White Blood Cell (WBC) Count 10.97 10x3/uL (4.8-10.8)
[2025-01-06 19:55] LABS: ALT (SGPT) 45 U/L (Less than 34); AST (SGOT) 34 U/L (11-34); Albumin 3.8 g/dL (3.1-4.5); Alkaline Phosphatase 45 U/L (40-110); Anion Gap 13 mmol/L (10-20); BUN (Urea Nitrogen) 16 mg/dL (9.8-20.1); Bilirubin, Total 0.3 mg/dL (0.3-1.2); Calc. Creatinine Clearance 0 mL/min (70-130); Calcium 9.3 mg/dL (7.8-10.44); Carbon Dioxide 23 mmol/L (23-31); Chloride 92 mmol/L (98-107); Globulin 3.0 g/dL (2.4-3.5); Glucose 112 mg/dL (80-115); Potassium 4.4 mmol/L (3.5-5.1); Sodium 124 mmol/L (136-145)
[2025-01-06 20:47] LABS: Osmolality, Serum 259 mOsm/kg (280-301)
[2025-01-06] MEDS ORDERED: Bisacodyl 10 MG SUPP PR PRN (21:21)
[2025-01-06] MEDS ORDERED: Ondansetron PF 4 MG/2 ML Vial SLOW IVP PRN (21:21)
[2025-01-06] MEDS ORDERED: Communication Order-Pharmacy FS PRN (21:30)
[2025-01-07 00:34] VITALS: BMI 19.3
[2025-01-07 00:41] LABS: Anion Gap 11 mmol/L (10-20); BUN (Urea Nitrogen) 19 mg/dL (9.8-20.1); Calc. Creatinine Clearance 69 mL/min (70-130); Calcium 9.0 mg/dL (7.8-10.44); Carbon Dioxide 20 mmol/L (23-31); Chloride 96 mmol/L (98-107); Glucose 134 mg/dL (80-115); Potassium 4.2 mmol/L (3.5-5.1); Sodium 123 mmol/L (136-145)
[2025-01-07 01:53] LABS: Osmolality, Urine 184 mOsm/kg (50-1200)
[2025-01-07] MEDS ORDERED: Albuterol 2.5 MG (3 mL) NEB NEB PRN (04:05)
[2025-01-07] MEDS: Mometasone 200 MCG/Formoterol 5 MCG 120 PUFF INHALER INH SCH (06:06)
[2025-01-07 06:16] LABS: #Basophils 0.03 10x3/uL (0.0-0.2); #Eosinophils 0.07 10x3/uL (0.0-0.7); #Monocytes 0.58 10x3/uL (0.11-0.59); #Neutrophils 4.31 10x3/uL (1.40-6.50); %Basophils 0.4 % (0.0-1.0); %Eosinophils 0.9 % (0.0-10.0); %Lymphocytes 37.2 % (21.0-51.0); %Monocytes 7.2 % (0.0-10.0); %Neutrophils 53.6 % (42.0-75.0); Hematocrit 32.3 % (36.0-47.0); Hemoglobin 11.1 g/dL (12.0-16.0); Mean Corpuscular Hemoglobin 31.5 pg (27.0-31.0); Mean Corpuscular Volume 91.8 fL (78.0-98.0); Platelet Count 312 10x3/uL (130-400); Red Blood Cell (RBC) Count 3.52 mill/uL (4.20-5.40); White Blood Cell (WBC) Count 8.04 10x3/uL (4.8-10.8)
[2025-01-07 06:33] LABS: INR-International Normal Ratio 0.9; PTT 26.7 sec (22.9-36.1); Prothrombin Time 12.5 sec (12.0-14.7)
[2025-01-07 06:38] LABS: ALT (SGPT) 48 U/L (Less than 34); AST (SGOT) 35 U/L (11-34); Albumin 3.8 g/dL (3.1-4.5); Alkaline Phosphatase 44 U/L (40-110); Anion Gap 10 mmol/L (10-20); BUN (Urea Nitrogen) 13 mg/dL (9.8-20.1); Bilirubin, Total 0.4 mg/dL (0.3-1.2); Calc. Creatinine Clearance 69 mL/min (70-130); Calcium 9.4 mg/dL (7.8-10.44); Carbon Dioxide 22 mmol/L (23-31); Chloride 98 mmol/L (98-107); Globulin 2.8 g/dL (2.4-3.5); Glucose 104 mg/dL (80-115); Magnesium 1.8 mg/dL (1.6-2.6); Potassium 4.4 mmol/L (3.5-5.1); Sodium 126 mmol/L (136-145)
[2025-01-07] MEDS: dilTIAZem 30 MG TAB PO SCH (08:51)
[2025-01-07] MEDS: Lisinopril 20 MG TAB PO SCH (08:51)
[2025-01-07] MEDS: Pantoprazole 40 MG DR.TAB PO SCH (08:53)
[2025-01-07 09:17] LABS: Anion Gap 16 mmol/L (10-20); BUN (Urea Nitrogen) 14 mg/dL (9.8-20.1); Calc. Creatinine Clearance 70 mL/min (70-130); Calcium 9.7 mg/dL (7.8-10.44); Carbon Dioxide 20 mmol/L (23-31); Chloride 97 mmol/L (98-107); Glucose 102 mg/dL (80-115); Potassium 4.6 mmol/L (3.5-5.1); Sodium 128 mmol/L (136-145)
[2025-01-07] MEDS: HYDROcodone/Acetaminophen 5/325 mg Tablet PO PRN ×2 (11:35→20:06)
[2025-01-07] MEDS ORDERED: Bupivacaine 0.25% HCL 30 ML VIAL ONE (11:50)
[2025-01-07 14:20] VITALS: BMI 19.3
[2025-01-08 06:26] LABS: Anion Gap 11 mmol/L (10-20); BUN (Urea Nitrogen) 23 mg/dL (9.8-20.1); Calc. Creatinine Clearance 62 mL/min (70-130); Calcium 9.8 mg/dL (7.8-10.44); Carbon Dioxide 23 mmol/L (23-31); Chloride 102 mmol/L (98-107); Glucose 113 mg/dL (80-115); Magnesium 1.8 mg/dL (1.6-2.6); Potassium 4.5 mmol/L (3.5-5.1); Sodium 131 mmol/L (136-145)
[2025-01-08] MEDS ORDERED: Thrombin 5000 UNITS/5 ML VIAL ONE (07:20)
[2025-01-08] MEDS ORDERED: Bacitracin Zinc Ointment 30 gm TUBE ONE (07:20)
[2025-01-08] MEDS ORDERED: Rocuronium Bromide 10 MG/ML (10ML VIAL) ONE (08:15)
[2025-01-08] MEDS ORDERED: Lidocaine 1% PF 5 ML VIAL ONE (08:15)
[2025-01-08] MEDS ORDERED: PROPOFOL 20 ML ONE (08:15)
[2025-01-08] MEDS ORDERED: Ondansetron PF 4 MG/2 ML Vial ONE ×2 (08:15→14:40)
[2025-01-08] MEDS ORDERED: fentaNYL PF 100 MCG/2 ML SYRINGE ONE ×3 (08:15→14:47)
[2025-01-08] MEDS ORDERED: CEFAZOLIN 2 GM VIAL ONE (08:23)
[2025-01-08] MEDS ORDERED: PHENYLEPHRINE-NS 100 MCG/ML 10 ML SYRINGE ONE (08:52)
[2025-01-08] MEDS ORDERED: Phenylephrine 40 MG/NS 250 ML 250 ML ONE (08:57)
[2025-01-08] MEDS ORDERED: CEFAZOLIN 1 GM VIAL ONE (13:53)
[2025-01-08] MEDS ORDERED: SUGAMMADEX SODIUM 200 MG/2 ML VIAL ONE (13:59)
[2025-01-08] MEDS: Acetaminophen 325 MG TAB PO PRN (23:25)
[2025-01-09] MEDS: Cyclobenzaprine 10 MG TAB PO PRN (01:54)
[2025-01-09 08:22] VITALS: TEMP 97.6
[2025-01-09 11:11] LABS: Anion Gap 11 mmol/L (10-20); BUN (Urea Nitrogen) 30 mg/dL (9.8-20.1); Calc. Creatinine Clearance 55 mL/min (70-130); Calcium 9.7 mg/dL (7.8-10.44); Carbon Dioxide 23 mmol/L (23-31); Chloride 99 mmol/L (98-107); Glucose 135 mg/dL (80-115); Potassium 4.8 mmol/L (3.5-5.1); Sodium 128 mmol/L (136-145)
[2025-01-09 11:54] VITALS: BP 121/63
[2025-01-09] MEDS ORDERED: Calcium Carbonate 500 MG ChewTAB PO PRN (14:43)
[2025-01-09] MEDS ORDERED: QUEtiapine 100 MG TAB PO SCH (21:00)
[2025-01-09] MEDS ORDERED: Non-Formulary Item 1 EACH (Methocarbamol [Methocarbamol] 750 MG Tablet) PO SCH (21:00)
[2025-01-10] MEDS ORDERED: DULoxetine 30 MG CAP PO SCH (09:00)
[2025-01-10] MEDS ORDERED: Transdermal Patch Removal TOP SCH (21:00)
== END 2025-01-09 17:00 | disposition home or self-care (01) | DRG 518 ==
LOC: ERS 18:18 → SURG B 20:57
PROVIDERS: ADMIT Orthopaedic Surgery; ATTEND Orthopaedic Surgery
PROC: 3E033XZ Introduction of Vasopressor into Peripheral Vein, Percutaneous Approach (ICD-10-PCS; 2025-01-07)
PROC: 0SB20ZZ Excision of Lumbar Vertebral Disc, Open Approach (ICD-10-PCS; principal; 2025-01-08)
PROC: 00NY0ZZ Release Lumbar Spinal Cord, Open Approach (ICD-10-PCS; 2025-01-08)
PROC: 01NB0ZZ Release Lumbar Nerve, Open Approach (ICD-10-PCS; 2025-01-08)
PROC: 3E03329 Introduction of Other Anti-infective into Peripheral Vein, Percutaneous Approach (ICD-10-PCS; 2025-01-08)
DX: M48.062 Spinal stenosis, lumbar region with neurogenic claudication (principal); E43 Unspecified severe protein-calorie malnutrition; E87.1 Hypo-osmolality and hyponatremia; G83.4 Cauda equina syndrome; Z68.1 Body mass index [BMI] 19.9 or less, adult; J44.9 Chronic obstructive pulmonary disease, unspecified; I10 Essential (primary) hypertension; K58.9 Irritable bowel syndrome, unspecified; M06.9 Rheumatoid arthritis, unspecified; F31.9 Bipolar disorder, unspecified; Z90.49 Acquired absence of other specified parts of digestive tract; Z98.890 Other specified postprocedural states; Z90.721 Acquired absence of ovaries, unilateral; M41.9 Scoliosis, unspecified; M51.379 Other intervertebral disc degeneration, lumbosacral region without mention of lumbar back pain or lower extremity pain; F17.200 Nicotine dependence, unspecified, uncomplicated; Z71.6 Tobacco abuse counseling; Z88.5 Allergy status to narcotic agent; R33.9 Retention of urine, unspecified; M54.16 Radiculopathy, lumbar region; K75.9 Inflammatory liver disease, unspecified; Z79.899 Other long term (current) drug therapy
CPT/HCPCS: 36415; 51798; 71045; 72100; 74018; 80048; 80053; 83735; 83930; 83935; 84300; 84443; 84550; 85025; 85610; 85730; 86850; 86900; 86901; 88305; 93005; 93306; 94640; 96374; 96375; C1889; J0169; J0665; J0690; J1100; J2270; J2405; J2704; J3373